=== PATIENT | male | born 1995 | race Caucasian/White ===

== ENCOUNTER → 2022-03-19 16:32 | Outpatient (CLI) | payer OTHER, SELFPAY ==
--- NOTE | 2022-03-19 16:37 | DI.MRI.S_ITS ---
PROCEDURE: MR KNEE LT WO CON INDICATIONS: LEFT KNEE PAIN TECHNIQUE: Noncontrast sagittal PD fast spin echo and T2 fast spin echo with fat saturation, sagittal 3-D FLASH with fat saturation; coronal T1 spin echo and PD fast spin echo with fat saturation, and axial PD fast spin echo with fat saturation through the knee. COMPARISON: None. FINDINGS: Image quality: Excellent. Menisci: The medial and lateral menisci demonstrate normal morphology and internal signal. The meniscal root ligaments appear intact. Cruciate ligaments: The anterior and posterior cruciate ligaments appear intact. Medial structures: The medial collateral ligament appears intact. Visualized portions of the pes anserinus tendons appear normal. No abnormal bursal fluid. Lateral structures: The lateral collateral ligament, long and short heads of the biceps femoris tendon appear intact. The popliteus tendon appears normal. Iliotibial band appears normal. Anterior structures: Moderate T2 signal elevation at the patellar insertion site of the medial patellofemoral ligament. The quadriceps and patellar tendons appear intact. Lateral patellar subluxation is present. Mild lateral ventral trochlear prominence is present. Bones and cartilage: Mildly displaced fracture of the inferomedial aspect of the patella with moderate surrounding ill-defined T2 signal elevation, indicating contusion. There is an associated unstable osteochondral fragment at the inferomedial aspect of the patella. Moderate ill-defined T2 signal elevation within the anterolateral nonweightbearing aspect of the lateral femoral condyle associated with linear low T1/T2 signal intensity within the lateral femoral condyle. Mild articular cartilage loss diffusely overlies the weight-bearing aspects of the medial femoral condyle and medial tibial plateau. Joint space: There is a moderate knee joint effusion and a trace Keenan's cyst. Normal appearing synovial plicae are incidentally noted. IMPRESSION: 1. Sequelae of recent lateral patellar dislocation associated with inferomedial patellar fracture and impaction fracture of the lateral femoral condyle. There is an associated unstable osteochondral fragment at the inferomedial aspect of the patella. 2. Knee joint effusion and trace Keenan's cyst. 3. No evidence of cruciate or meniscal ligament tear. Dictated by: Rashaad Downing M.D. on 03/20/2022 at 9:32 Approved by: Rashaad Downing M.D. on 03/20/2022 at 9:34
== END ==
PROVIDERS: Referring Provider Orthopaedic Surgery; Visit Provider Orthopaedic Surgery
DX: M25.562 Pain in left knee (principal); M25.462 Effusion, left knee; M71.22 Synovial cyst of popliteal space [Baker], left knee
CPT/HCPCS: 73721

== ENCOUNTER → 2023-06-26 08:52 | Outpatient (CLI) | payer OTHER, SELFPAY ==
--- NOTE | 2023-06-26 | DI.RAD.S_ITS ---
PROCEDURE: FL ARTHROGRAM KNEE LT INDICATIONS: Displaced osteochondral fracture of left patella COMPARISON: [facility], MR, MR KNEE LT W CON, 06/26/2023, 9:50. TECHNIQUE: The indications, alternatives, benefits, risks, and complications of the procedure were explained to the patient. Written informed consent was obtained and placed in the chart. The knee was examined fluoroscopically, and a site chosen for knee joint injection. The skin was prepped and draped in a sterile fashion, and 1% Lidocaine infiltrated from the skin down to the articular surface. A hypodermic needle was then introduced into the joint and iodinated contrast media was instilled to confirm the intra-articular needle tip placement. This was followed by approximately 50 mL dilute solution of a gadolinium containing MR contrast agent. The needle was removed and a bandage was applied. An Neftali wrap was then applied around the knee joint to keep the contrast from collecting in the suprapatellar recess. The patient experienced no complications throughout the procedure and left the fluoroscopic suite in no apparent distress. FINDINGS: Single fluoroscopic spot image demonstrates intra-articular location to injected iodinated contrast. IMPRESSION: Successful fluoroscopically guided administration of dilute Gadolinium solution into the knee joint for MR arthrogram. Dictated by: Jacquie Granados M.D. on 06/26/2023 at 13:52 Approved by: Jacquie Granados M.D. on 06/26/2023 at 13:52
--- NOTE | 2023-06-26 | DI.MRI.S_ITS ---
PROCEDURE: MR KNEE LT W CON INDICATIONS: Displaced osteochondral fracture of left patella TECHNIQUE: After the administration of 50 mL of dilute intra-articular Gadolinium contrast, sagittal T1 spin echo with fat saturation and PD fast spin echo with fat saturation, coronal T1 spin echo with and without fat saturation, coronal T2 fast spin echo with fat saturation, axial PD fast spin echo with fat saturation through the knee. COMPARISON: [facility], MR, MR KNEE LT WO CON, 03/19/2022, 17:04. [facility], CR, XR KNEE ARTHRITIC SERIES LT, 07/08/2022, 14:16. FINDINGS: Image quality: Excellent. Menisci: The medial and lateral menisci demonstrate normal morphology and internal signal. The meniscal root ligaments appear intact. Cruciate ligaments: The anterior and posterior cruciate ligaments appear intact. Medial structures: The medial collateral ligament appears intact. Visualized portions of the pes anserinus tendons appear normal. No abnormal bursal fluid. Lateral structures: The lateral collateral ligament, long and short heads of the biceps femoris tendon appear intact. The popliteus tendon appears normal. Iliotibial band appears normal. Anterior structures: The quadriceps and patellar tendons appear intact. Thickened medial patellofemoral ligament at its patellar insertion is seen. Patellar alignment is normal. No femoral trochlear dysplasia or ventral trochlear prominence. No edema in the infrapatellar fat pad. Bone and cartilage: Patient is status post surgical repair of medial patellofemoral ligament with postsurgical changes seen in medial patella and medial femoral condyle. Susceptibility artifacts are seen. Previously described osteochondral injury involving inferior medial aspect of the patella with a unstable fragment is again seen without significant marrow edema in this area on the current study. 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 The cartilage of the medial and lateral femorotibial compartments appears normal in thickness. Joint space: No Keenan's cyst. Normal appearing synovial plicae are incidentally noted. No intra-articular bodies. IMPRESSION: 1. Again noted is osteochondral defect involving inferior medial patella with contrast extending between the fragment and inferior medial aspect of patella consistent with unstable fragment. No significant marrow edema is seen on the current study. 2. No intra-articular loose bodies. 3. Interval repair of medial patellofemoral ligament. Thickened medial patellofemoral ligament at its patellar insertion with intrasubstance T2 hyperintense signal likely represent postsurgical changes and/or from contrast injection. No full-thickness ligament rupture. Patellar alignment is anatomic. 4. No marrow edema. No acute fracture or dislocation. 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 5. The cruciate ligaments are intact. No evidence of focal meniscal tear. Dictated by: Nii Hughes M.D. on 06/26/2023 at 13:38 Approved by: Nii Hughes M.D. on 06/26/2023 at 15:29
[2023-06-26] MEDS: SODIUM CHLORIDE 0.9 % 20 ML VIAL IV ×2 (09:15)
[2023-06-26] MEDS: LIDOCAINE 1% 20 ML INJ (09:15)
== END ==
PROVIDERS: Referring Provider Orthopaedic Surgery; Visit Provider Orthopaedic Surgery
DX: S82.012D Displaced osteochondral fracture of left patella, subsequent encounter for closed fracture with routine healing (principal); M22.42 Chondromalacia patellae, left knee; X58.XXXD Exposure to other specified factors, subsequent encounter
CPT/HCPCS: 27369; 73722; 77002